=== PATIENT | female | born 1990 | race Caucasian/White ===

== ENCOUNTER 2025-07-31 19:01 | Observation (INO) | payer OTHER ==
[~2025-07-31] VITALS: Ht 170.2 cm; Wt 90.7 kg
[2025-07-31] MEDS ORDERED: Ondansetron HCl 2 MG / ML 2ML Vial IV PRN (19:20)
[2025-07-31 19:37] LABS: Source, Urine Clean Catch
[2025-07-31 19:44] LABS: Bilirubin, Urine Neg (Neg); Color, Urine Yellow (P-Yellow); Glucose Qualitative, Urine Neg (Neg); Ketones, Urine 1+ (Neg); Leukocyte Esterase, Urine 2+ (Neg); Protein, Urine 2+ (Neg); Specific Gravity, Urine 1.015 (1.003-1.022); Urobilinogen, Urine 1+ (Normal)
[2025-07-31 19:53] LABS: BASOPHILS ABSOLUTE AUTO 0.03 K/mm3 (0.00-0.23); BASOPHILS PERCENT AUTO 0 % (0-2); EOSINOPHILS ABSOLUTE AUTO 0.08 K/mm3 (0.00-0.68); EOSINOPHILS PERCENT AUTO 1 % (0-6); Hematocrit 44.1 % (33.0-51.0); Hemoglobin 15.0 g/dL (11.5-16.0); IMMATURE GRAN ABSOLUTE AUTO 0.03 K/mm3 (0.00-0.10); IMMATURE GRAN PERCENT AUTO 0 % (0-1); LYMPHOCYTES ABSOLUTE AUTO 2.98 K/mm3 (0.84-5.20); LYMPHOCYTES PERCENT AUTO 25 % (21-46); MONOCYTES ABSOLUTE AUTO 0.78 K/mm3 (0.16-1.47); MONOCYTES PERCENT AUTO 7 % (4-13); Mean Corpuscular HGB Conc 34.0 g/dL (31.5-36.5); Mean Corpuscular Volume 87 fL (80-100); NEUTROPHILS ABSOLUTE AUTO 7.88 K/mm3 (1.96-9.15); NEUTROPHILS PERCENT AUTO 67 % (41-73); NRBC ABSOLUTE 0.00 K/mm3 (0.00-0.02); NRBC Auto 0.0 /100 WBC (0.0-0.2); Platelet Count 242 K/mm3 (150-400); RDW Coefficient Variation 13.0 % (11.7-14.2); RDW Standard Deviation 41.2 fL (35.1-46.3)
[2025-07-31] MEDS ORDERED: Morphine Sulfate 4 MG/1 ML Injection IV ONE (20:15)
[2025-07-31 20:16] LABS: Alanine Aminotransfer (ALT/SGP 27.0 U/L (12-78); Albumin, Blood 4.2 g/dL (3.4-5.0); Albumin/Globulin Ratio 1.2 (0.8-1.8); Anion Gap 11.0 mmol/L (3-11); Aspartate Aminotrans (AST/SGOT 17.0 U/L (12-37); Bilirubin, Total 0.6 mg/dL (0.1-1.0); Blood Urea Nitrogen 12.0 mg/dL (8-24); CO2, Blood 28.0 mmol/L (21-32); Calcium, Blood 9.1 mg/dL (8.5-10.1); Chloride, Blood 104.0 mmol/L (98-108); Creatinine, Blood 1.0 mg/dL (0.40-1.00); Globulin, Blood 3.4 g/dL (2.2-4.0); Glucose, Blood 110.0 mg/dL (70-99); Potassium, Blood 3.7 mmol/L (3.5-5.5); Sodium, Blood 139.0 mmol/L (136-145); Total Protein, Blood 7.6 g/dL (6.4-8.2)
[2025-07-31] MEDS ORDERED: HYDROmorphone HCl/Pf 1MG SYR IV ONE (22:45)
[2025-08-01] VITALS (16 sets, daily range): BP systolic 93–130; BP diastolic 53–88
[2025-08-01] MEDS ORDERED: NS 1,000 ML IV SCH ×2 (00:20→14:20)
[2025-08-01] MEDS ORDERED: FentaNYL Citrate 50 MCG/ML 2 ML Injection IV PRN ×3 (00:25→11:40)
[2025-08-01] MEDS ORDERED: Piperacillin/Tazobactam Sod 4.5 GM in NS 100 ML IV ONE (00:30)
--- NOTE | 2025-08-01 05:52 | NUR ---
SHIFT SUMMARY PATIENT IS ALERT AND ORIENTED. PATIENT HAS HAD NO ACUTE EVENTS THIS SHIFT. PATIENT IS A SURGICAL FLOOR OVERFLOW PT. PT ADMITTED FOR CHOLELITHIASIS AND MEDICATED Q1 FOR PAIN. PATIENT HAS HAD COMPLAINTS OF NAUSEA RELATED TO PAIN. PATIENT HAS HAD NO REPORTS OR COMPLAINTS OF VOMITTING. DR MIDDLETON WAS CONSULTED ON CASE PER ER NOTE. BED IN LOCKED AND LOWEST POSITION.
[2025-08-01] MEDS ORDERED: Ondansetron HCl 2 MG / ML 2ML Vial IV PRN ×3 (08:35→14:20)
[2025-08-01] MEDS ORDERED: HYDROmorphone HCl/Pf 1MG SYR IV ONE (08:35)
--- NOTE | 2025-08-01 09:00 | NUR ---
NOTE PT A&OX4. PT REPORTS ABD PAIN FREQUENTLY. PT IN ROOM CRYING AND ROCKING BACK AND FORTH WHEN PAIN MED WEARS OFF. PT HAD 6 OUT OF 6 FENT. PT REPORTS NAUSEA. CALLED DR. BESS TO REPORT PAIN AND NAUSEA. DR BESS ORDERED Q6 ZOFRAN AND ONE TIME DILAUDID. DR. BESS REPORTED "WILL BE THERE SOON TO TAKE HER TO OR." PT MEDICATED, IN BED. CALL LIGHT IN REACH.
[2025-08-01] MEDS ORDERED: FentaNYL Citrate 50 MCG/ML 2 ML Injection ONE ×2 (11:25→13:49)
[2025-08-01] MEDS ORDERED: Rocuronium Bromide 10 MG/ML 5ML Injection IV ONE (11:25)
[2025-08-01] MEDS ORDERED: HYDROmorphone HCl/Pf 1MG SYR IV PRN (11:35)
[2025-08-01] MEDS ORDERED: Metoclopramide HCl 5MG / ML 2ML Vial IV PRN (11:35)
[2025-08-01] MEDS ORDERED: Prochlorperazine Edisylate 10 mg Vial IV PRN (11:40)
[2025-08-01] MEDS ORDERED: Albuterol 2.5 MG/3 ML VIAL INH PRN (11:40)
[2025-08-01] MEDS ORDERED: Lidocaine HCl 4% 5 ML SDA ONE (12:51)
--- NOTE | 2025-08-01 12:52 | NUR ---
NOTE PRESSER [facility] TRANSPORTED PT TO OR BY BED. OSMAN - SISTER NOTIFIED VIA CELL.
[2025-08-01] MEDS ORDERED: Bupivacaine 0.5% HCl 5 MG/ML 30MLVIAL ONE (12:58)
[2025-08-01] MEDS ORDERED: Midazolam HCl 1MG / ML 2ML Vial ONE (13:00)
--- NOTE | 2025-08-01 13:11 | NUR ---
PT IN PACU FOR PRE-OP. Pre-Op teaching done. Pt verbalizes understanding. Patient confirms NPO status and agrees with scheduled surgery. Lungs clear T/O to Auscultation.
[2025-08-01] MEDS ORDERED: Ondansetron HCl 2 MG / ML 2ML Vial ONE (13:27)
[2025-08-01] MEDS ORDERED: Dexamethasone Sod Phos 10 MG/ML 1ML VIAL ONE (13:27)
[2025-08-01] MEDS ORDERED: Sugammadex Sodium 200 MG/2ML SDV (100 MG/ML) ONE (13:29)
[2025-08-01] MEDS ORDERED: CeFAZolin Sodium 1000 mg Vial ONE (13:29)
[2025-08-01] MEDS ORDERED: Ketorolac Tromethamine 30mg Vial ONE (13:29)
[2025-08-01] MEDS ORDERED: FLU VACC TS2025-26(6MOS UP)/PF 45 MCG/0.5 ML SYRINGE IM SCH (14:20)
[2025-08-01] MEDS ORDERED: Ketorolac Tromethamine 30mg Vial IV PRN (14:30)
[2025-08-01] MEDS ORDERED: HYDROmorphone HCl/Pf 1MG SYR ONE (14:44)
--- NOTE | 2025-08-01 19:47 | NUR ---
SHIFT SUMMARY PT A&OX4. PT ADMITTED DUE TO CHOLELITHIASIS. PT HAD PROCEDURE TODAY TO GET GALLBLADDER REMOVED. PT EDUCATED ABOUT POST OP PRECAUTIONS. PT BACK FROM OR AROUND 1700. PT ATE REGULAR DIET AT DINNER, PT HAS 4 LAP SITES, C/D/I. PT IS SBA WITH LINES. PT HAS NS RUNNING AT 100ML/HR. POST OP VITALS STARTED. PT HAS SOFT BLOOD PRESSURE. PT IN BED, BED IN LOWEST POSITION, CALL LIGHT IN REACH. DURING BEDSIDE REPORT, PT REPORTED RED URINE, NIGHT RN IN ROOM WHEN PT SPOKE TO URINE. PT REPORTS BURNING RUQ PAIN INTERMITTENT. PT MEDICATED PER EMAR. PT REPORTS NO NAUSEA.
[2025-08-01] MEDS ORDERED: CefTRIAXone Sodium 1,000 MG in NS 100 ML IV SCH (19:50)
[2025-08-02 03:54] VITALS: BP 94/59
--- NOTE | 2025-08-02 06:19 | NUR ---
SHIFT SUMMARY; PT A/OX4, PLEASANT, AND COOPERATIVE WITH CARE. PT AMBULATES TO RESTROOM WITH STANDBY ASSIST. FIRST VOID OF URINE INTO THE SHIFT, PT REPORTS RED COLOR TO HER URINE. FOUR INCISIONS VISUALIZED ON ABD- ONE LOCATED ON THE NAVAL AND THREE ON THE R LOWER ABD. PT REPORTS A BURNING PAIN LOCATED ON THE R LOWER ABD AT A LEVEL OF 8 ON THE 0-[address] CANCINO PAGED AND NOTIFIED OF RED COLOR MANNIE OF URINE AND BURNING PAIN OF THE ABD. URINE INDICATES AN INFECTION PER URINE CULTURE. ROCEPHIN ORDERED AND STARTED PER EMAR. PAIN MANAGED WITH TORADOL AND ROXYCODONE. PAIN LEVEL REDUCES TO A TOLERABLE LEVEL OF 4 ON THE 0-10 PAIN SCALE, ACCORDING TO THE PT. PT DENIES NAUSEA. BOWEL TONES NORMACTIVE. VSS, HOWEVER PT HAS SOFT BPS. CALL LIGHT W/IN REACH AND BED IN LOW POSITION.
[2025-08-02 07:48] VITALS: BP 96/57
[2025-08-02] MEDS ORDERED: Enoxaparin 40 MG/0.4 ML SYR SC SCH (09:00)
--- NOTE | 2025-08-02 15:57 | NUR ---
DISHCARGE SUMMARY: PATIENT DISCHARGED AT 1335. IV REMOVED AND BELONGINGS PROVIDED TO PATIENT. PATIENT WHEELED OUT ON W/C. EDUCATED PATIENT ON OXYCODONE FOR PAIN PURPOSES. INCISIONS C/D/I WITH NO REDNESS, SWELLING, OR WARTH AT SITES. PATIENT VERBALIZED UNDERSTANDING OF DISCHARGE INSTRUCTIONS.
== END 2025-08-02 13:30 | disposition home or self-care (01) ==
LOC: ER 19:01 → SURS 19:02 → MEDS 19:02
PROVIDERS: Student in an Organized Health Care Education/Training Program; ADMIT Surgery
PROC: 0FT44ZZ Resection of Gallbladder, Percutaneous Endoscopic Approach (ICD-10-PCS; principal; 2025-08-01 13:45)
DX: K80.18 Calculus of gallbladder with other cholecystitis without obstruction (principal); F17.210 Nicotine dependence, cigarettes, uncomplicated; Z88.8 Allergy status to other drugs, medicaments and biological substances
CPT/HCPCS: 36415; 74177; 76705; 80053; 81001; 83690; 84703; 85025; 87040; 87086; 88304; 96361; 96374-59; 96375; 96376; 99285-25; A9270; C1729; G0378; J0690; J0696; J1100; J1171; J1885; J2003; J2250; J2270; J2405; J2543; J2704; J3010; J7030; J7120; Q9967